=== PATIENT | female | born 1950 | race Caucasian/White ===

== ENCOUNTER → 2023-06-22 12:05 | Outpatient (REF) | payer MEDICARE, OTHER, SELFPAY | LOC: WDC 12:05 | PROVIDERS: ATTENDING PHYSICIAN Student in an Organized Health Care Education/Training Program | DX: Z12.31 Encounter for screening mammogram for malignant neoplasm of breast (principal) | CPT/HCPCS: 77063; 77067 ==

== ENCOUNTER → 2023-10-31 06:26 | Outpatient (REF) | payer MEDICARE, OTHER, SELFPAY ==
[2023-10-31 07:41] LABS: ALT (SGPT) 14 U/L (0-35); AST (SGOT) 29 U/L (14-36); Albumin 4.3 g/dl (3.5-5.0); Alkaline Phosphatase 75 U/L (38-126); Blood Urea Nitrogen 15 mg/dl (7-17); Calcium 10.2 mg/dl (8.4-10.2); Carbon Dioxide 31 mmol/L (22-30); Chloride 102 mmol/L (98-107); Glucose 91 mg/dl (70-99); HDL Cholesterol 51 mg/dl; LDL Cholesterol, Calculated 88 mg/dl; Potassium 5.3 mmol/L (3.5-5.1); Sodium 142 mmol/L (135-145); Total Bilirubin 0.7 mg/dl (0.2-1.3); Total Cholesterol 165 mg/dl (50-199); Triglyceride 131 mg/dl (10-149); Very Low Density Lipoprotein 26 mg/dl (0-30); eGFR > 60.00
== END ==
LOC: REG 06:26
PROVIDERS: ATTENDING PHYSICIAN Internal Medicine Rheumatology; FAMILY PHYSICIAN Student in an Organized Health Care Education/Training Program
DX: Z00.00 Encounter for general adult medical examination without abnormal findings (principal); E78.5 Hyperlipidemia, unspecified; M81.0 Age-related osteoporosis without current pathological fracture
CPT/HCPCS: 36415; 80053; 80061

== ENCOUNTER → 2023-11-30 12:38 | Outpatient (REF) | payer MEDICARE, OTHER, SELFPAY | LOC: RCS 12:38 | PROVIDERS: ATTENDING PHYSICIAN Student in an Organized Health Care Education/Training Program | DX: R01.1 Cardiac murmur, unspecified (principal) | CPT/HCPCS: 93306 ==

== ENCOUNTER 2023-12-04 19:41 | Emergency (ER) | payer MEDICARE, OTHER, SELFPAY ==
[2023-12-04 19:45] VITALS: BP 118/72
--- NOTE | 2023-12-04 20:39 | ED.GENMED ---
History of Present Illness
<Celeste Disla MD, Resident - Last Filed: 12/04/23 22:03>
General
Chief Complaint: Fever
Time Seen by Provider: 12/04/23 20:24
History of Present Illness
History of Present Illness:
72-year-old female presented to the ED with fever of 101 restarted this morning. The patient's highest temperature went up to 203.6. She reports of having chills, headaches. She denies chest pain, shortness of breath, dysuria, hematuria,
hematochezia, rash. She denies any recent cough cough or sick contacts. Patient reports that she has had a chronic cough because of her postnasal drip.
Past History
<Celeste iDsla MD, Resident - Last Filed: 12/04/23 22:03>
Past History
ED Past Medical History: Hypercholesterolemia
ED Past Surgical History: Orthopedic and Tonsilectomy
Social History
Tobacco: Non-smoker
Alcohol: Occasional
Drug: None
Personal:
Living: with family
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
Review of Systems
<Celeste Disla MD, Resident - Last Filed: 12/04/23 22:03>
Review of Systems
Constitutional: Reports fever, fatigue and chills
Phy Exam
<Celeste Disla MD, Resident - Last Filed: 12/04/23 22:03>
Physical Exam
Physical Exam:
Comfortable, conversant
General Physical Exam
General Presentation: no apparent distress
ENT Exam
ENT Exam: EOMI
Cardiovascular Exam
Cardiovascular Exam: regular rate/rhythm
Pulmonary Exam
Pulmonary Exam: lungs clear, no rales, no crackles, no rhonchi and no wheezing
Gastrointestinal Exam
Gastrointestinal Exam: normal bowel sounds, non tender, soft and non distended
Neurological Exam
Neurological Exam: alert and oriented x3
Psychiatric Exam
Psychiatric Exam: normal mood/affect
Course
<Celeste Disla MD, Resident - Last Filed: 12/04/23 22:03>
Orders/Labs/Results
Orders:
Orders
12/04/23 20:38
CR Chest - 2 Views Urgent
Comment:
Reason For Exam: fever 101 with cough
12/04/23 20:59
COVID-19 Antigen Urgent
Source: Nasal Swab
Complete Blood Count/With Diff Urgent
Comprehensive Metabolic Panel Urgent
Influenza A+B Rapid Molecular Urgent
SUN Source: Nasal Swab
Specimen Description:
Strep pneumoniae Antigen Urgent
SUN Source: Urine
Specimen Description:
12/04/23 21:30
0.9% Sodium Chloride 500 ml [Nss] 500 ml IV BOLUS
12/04/23 21:37
Influenza A+B Rapid Molecular Routine
SUN Source: [facility]
Specimen Description:
Abnormal Lab Results
12/04/23
20:59
WBC 13.2 H 10^3/uL
(4.8-10.8)
RBC 3.92 L 10^6/uL
(4.20-5.40)
Hgb 11.8 L g/dL
(12.0-16.0)
Hct 33.4 L %
(37.0-47.0)
Abs Immat Gran (auto) 0.1 H 10^3/uL
(0-0.05)
Absolute Neuts (auto) 11.4 H 10^3/uL
(1.4-6.5)
Absolute Lymphs (auto) 1.0 L 10^3/uL
(1.2-3.4)
Absolute Monos (auto) 0.7 H 10^3/uL
(0.1-0.6)
Neutrophils % 86.6 H %
(42.2-75.2)
Lymphocytes % 7.6 L %
(20.5-51.1)
Sodium 131 L mmol/L
(135-145)
Glucose 125 H mg/dl
(70-99)
12/04/23 20:59
12/04/23 20:59
Vital Signs
Initial and Last Documented VS:
Initial Vital Signs
Pulse Resp BP Pulse Ox
100 22 118/72 95
12/04/23 19:45 12/04/23 19:45 12/04/23 19:45 12/04/23 19:45
Last Documented Vital Signs
Pulse Resp BP Pulse Ox
100 22 118/72 95
12/04/23 19:45 12/04/23 19:45 12/04/23 19:45 12/04/23 19:45
<Audi Hanna, DO - Last Filed: 12/04/23 21:56>
Orders/Labs/Results
Orders:
Orders
12/04/23 20:38
CR Chest - 2 Views Urgent
Comment:
Reason For Exam: fever 101 with cough
12/04/23 20:59
COVID-19 Antigen Urgent
Source: Nasal Swab
Complete Blood Count/With Diff Urgent
Comprehensive Metabolic Panel Urgent
Influenza A+B Rapid Molecular Urgent
SUN Source: Nasal Swab
Specimen Description:
Strep pneumoniae Antigen Urgent
SUN Source: Urine
Specimen Description:
12/04/23 21:30
0.9% Sodium Chloride 500 ml [Nss] 500 ml IV BOLUS
12/04/23 21:37
Influenza A+B Rapid Molecular Routine
SUN Source: [facility]
Specimen Description:
Abnormal Lab Results
12/04/23
20:59
WBC 13.2 H 10^3/uL
(4.8-10.8)
RBC 3.92 L 10^6/uL
(4.20-5.40)
Hgb 11.8 L g/dL
(12.0-16.0)
Hct 33.4 L %
(37.0-47.0)
Abs Immat Gran (auto) 0.1 H 10^3/uL
(0-0.05)
Absolute Neuts (auto) 11.4 H 10^3/uL
(1.4-6.5)
Absolute Lymphs (auto) 1.0 L 10^3/uL
(1.2-3.4)
Absolute Monos (auto) 0.7 H 10^3/uL
(0.1-0.6)
Neutrophils % 86.6 H %
(42.2-75.2)
Lymphocytes % 7.6 L %
(20.5-51.1)
Sodium 131 L mmol/L
(135-145)
Glucose 125 H mg/dl
(70-99)
12/04/23 20:59
12/04/23 20:59
Vital Signs
Initial and Last Documented VS:
Initial Vital Signs
Pulse Resp BP Pulse Ox
100 22 118/72 95
12/04/23 19:45 12/04/23 19:45 12/04/23 19:45 12/04/23 19:45
Last Documented Vital Signs
Pulse Resp BP Pulse Ox
100 22 118/72 95
12/04/23 19:45 12/04/23 19:45 12/04/23 19:45 12/04/23 19:45
Sammilt;Celeste Disla MD, Resident - Last Filed: 12/04/23 22:03>
*Critical Care Note
Total Time (30-74mins, 75-104mins- exclusive of procedures): Not Applicable
<Celeste Disla MD, Resident - Last Filed: 12/04/23 22:03>
Update Note
Update Note:
73-year-old female presented to the ED with fever. She denies any cough, chest pain, shortness of breath or bowel or bladder abnormalities. Will order CBC, CMP, COVID, strep pneumo, influenza test. Will also order chest x-ray to rule out lung
consolidation. Chest x-ray is also suspicious for a possible pneumonia. Plan is to discharge the patient with antibiotics which includes Levaquin 500 mg once a day for 7 days and Motrin 600 mg as needed for fever. Advised to follow-up with family
doctor.
Chest x-ray
FINDINGS: The lungs appear hyperinflated, suggesting COPD.
There is subtle predominantly band-shaped region of increased parenchymal opacity within the lingula of the left upper lobe. This most likely represents pneumonia, although atelectasis could have a similar appearance.
No evidence for associated pleural effusion.
Cardiac silhouette size is within normal limits with no evidence for pulmonary edema.
Minimal levoconvex scoliosis of the thoracic spine.
IMPRESSION:
Hyperinflated lungs compatible with COPD.
Focus of parenchymal opacity within the lingula of the left upper lobe. This most likely represents pneumonia, although atelectasis could have a similar appearance.
ED Attending Note
<Celeste Disla MD, Resident - Last Filed: 12/04/23 22:03>
-
Portions of this chart may have been created with voice recognition software.� Occasional wrong word or��sound alike� substitutions may have occurred due to the inherent limitations of voice recognition software.
<Audi Hanna DO - Last Filed: 12/04/23 21:56>
ED Attending Note
Patient seen and examined by attending physician: Yes
I performed a history and physical exam of patient and discussed management with resident, I reviewed resident's note and agree with documented findings and plan of care.: Yes
ED Attending Note:
Seen with resident agree with assessment plan examined independently fever chills, not much respiratory complaints chest x-ray and white count noted will start on Levaquin, could be viral versus bacterial walking pneumonia feeling better after
fluids and Tylenol at home
Discharge Plan
Departure
Patient Disposition: Home (Routine Discharge)
Date of Disposition: 12/04/23
Time of Disposition: 21:56
Patient with high blood pressure during this ER visit?: No
Discharge Problem:
Left lower lobe consolidation
Prescriptions:
New
levofloxacin 500 mg tablet
500 mg PO DAILY 7 Days Qty: 7 0RF
Rx Instructions:
One table to be taken once a day with food
No Action
multivitamin Tablet
1 tab PO DAILY
atorvastatin 10 mg tablet
10 mg PO QPM
omeprazole 20 mg capsule,delayed release(DR/EC)
20 mg PO DAILY
Prolia 60 mg/mL Syringe
60 mg SC [id number]
Patient Comments:
last dose in April
naproxen 500 mg tablet
500 mg PO BID PRN (Reason: pain) Qty: 10 0RF
Rx Instructions:
take with food
oxycodone-acetaminophen [Percocet] 5-325 mg tablet
1 tab PO Q8H PRN (Reason: pain) Qty: 7 0RF
lidocaine 5 % adhesive patch,medicated
1 patch topical DAILY Qty: 15 0RF
Interventions
Interventions:
*Risk Screen - Suicide Last Done: 12/04/23 19:45
*General Assessment Last Done: 12/04/23 21:10
*Neglect/Abuse Screening Last Done: 12/04/23 19:45
ED- Fall Risk Assessment Last Done: 12/04/23 21:11
*ED COVID-19 Vaccine History Last Done: 12/04/23 21:10
ED- Neurological Assessment Last Done: 12/04/23 21:11
ED-Skin Assessment Last Done: 12/04/23 21:11
Discharge Date and Time
Print Language: AMHARIC
[2023-12-04 21:09] VITALS: BMI 17.8
[2023-12-04 21:11] LABS: % Basophils 0.4 % (0-2); % Immature Granulocytes 0.5 % (0-0.5); % Lymphocytes 7.6 % (20.5-51.1); % Monocytes 4.9 % (1.7-9.3); % Neutrophils 86.6 % (42.2-75.2); Absolute Basophils 0.1 10^3/uL (0-0.2); Absolute Immature Granulocytes 0.1 10^3/uL (0-0.05); Absolute Monocytes 0.7 10^3/uL (0.1-0.6); Absolute Neutrophils 11.4 10^3/uL (1.4-6.5); Hematocrit 33.4 % (37.0-47.0); Hemoglobin 11.8 g/dL (12.0-16.0); Mean Corp Hgb Conc. 35.3 g/dL (33.0-37.0); Mean Corpuscular Hgb 30.1 pg (27.0-31.0); Mean Corpuscular Volume 85.2 fL (81.0-99.0); Mean Platelet Volume 10.4 fL (7.4-10.4); Nucleated Red Blood Cells % 0 %; Platelet Count 206 10^3/uL (130-400); Red Blood Cell Count 3.92 10^6/uL (4.20-5.40); Red Cell Dist. Width 13.2 % (11.5-14.5); White Blood Cell Count 13.2 10^3/uL (4.8-10.8)
[2023-12-04 21:24] LABS: COVID-19 Antigen Negative (Negative)
[2023-12-04 21:26] LABS: ALT (SGPT) 14 U/L (0-35); AST (SGOT) 26 U/L (14-36); Alkaline Phosphatase 80 U/L (38-126); Blood Urea Nitrogen 14 mg/dl (7-17); Calcium 8.9 mg/dl (8.4-10.2); Carbon Dioxide 26 mmol/L (22-30); Chloride 99 mmol/L (98-107); Estimated Creatinine Clearance 53 ml/min; Glucose 125 mg/dl (70-99); Potassium 4.1 mmol/L (3.5-5.1); Sodium 131 mmol/L (135-145); Total Bilirubin 0.8 mg/dl (0.2-1.3); Total Protein 7.1 g/dl (6.3-8.2); eGFR > 60.00
[2023-12-04] MEDS: NSS 500 IV (21:38)
[2023-12-04 21:43] VITALS: BP 105/62
[2023-12-04 22:00] VITALS: BP 112/56
[2023-12-04] MEDS: MOTRIN 600 MG PO (22:33)
[2023-12-04] MEDS: LEVAQUIN 500 MG PO (22:33)
[2023-12-04 22:35] VITALS: BP 112/57
[2023-12-04 22:42] VITALS: BP 112/57
== END 2023-12-04 22:49 | disposition home or self-care (01) ==
LOC: EMR 19:41
PROVIDERS: Student in an Organized Health Care Education/Training Program; EMERGENCY PHYSICIAN Emergency Medicine; FAMILY PHYSICIAN Student in an Organized Health Care Education/Training Program
DX: J18.1 Lobar pneumonia, unspecified organism (principal); E78.00 Pure hypercholesterolemia, unspecified
CPT/HCPCS: 99283; 96360; 71046; 80053; 85025; 87502; 87811; 87899

== ENCOUNTER → 2023-12-21 06:39 | Outpatient (REF) | payer MEDICARE, OTHER, SELFPAY ==
[2023-12-21 07:33] LABS: Urine Albumin Negative (Neg - Trace); Urine Bilirubin Negative (Negative); Urine Character Clear (Clear); Urine Color Straw; Urine Glucose Negative (Negative); Urine Ketone Negative (Negative); Urine Leukocyte Negative (Negative); Urine Nitrite Negative (Negative); Urine Occult Blood Negative (Negative); Urine Specific Gravity 1.005 (<1.030); Urine Urobilinogen Negative (Neg - 1+)
[2023-12-21 07:36] LABS: % Basophils 1.1 % (0-2); % Eosinophils 1.5 % (0-6); % Immature Granulocytes 0.3 % (0-0.5); % Lymphocytes 30.4 % (20.5-51.1); % Monocytes 6.2 % (1.7-9.3); % Neutrophils 60.5 % (42.2-75.2); Absolute Basophils 0.1 10^3/uL (0-0.2); Absolute Eosinophils 0.1 10^3/uL (0-0.7); Absolute Lymphocytes 2.4 10^3/uL (1.2-3.4); Absolute Monocytes 0.5 10^3/uL (0.1-0.6); Absolute Neutrophils 4.7 10^3/uL (1.4-6.5); Hematocrit 38.7 % (37.0-47.0); Hemoglobin 12.6 g/dL (12.0-16.0); Mean Corp Hgb Conc. 32.6 g/dL (33.0-37.0); Mean Corpuscular Hgb 29.2 pg (27.0-31.0); Mean Corpuscular Volume 89.8 fL (81.0-99.0); Mean Platelet Volume 10.5 fL (7.4-10.4); Nucleated Red Blood Cells % 0 %; Platelet Count 336 10^3/uL (130-400); Red Blood Cell Count 4.31 10^6/uL (4.20-5.40); Red Cell Dist. Width 13.1 % (11.5-14.5); White Blood Cell Count 7.9 10^3/uL (4.8-10.8)
[2023-12-21 08:05] LABS: ALT (SGPT) 19 U/L (0-35); AST (SGOT) 30 U/L (14-36); Albumin 4.3 g/dl (3.5-5.0); Alkaline Phosphatase 94 U/L (38-126); Blood Urea Nitrogen 15 mg/dl (7-17); Calcium 9.7 mg/dl (8.4-10.2); Carbon Dioxide 31 mmol/L (22-30); Chloride 103 mmol/L (98-107); Glucose 99 mg/dl (70-99); Sodium 141 mmol/L (135-145); Total Bilirubin 0.7 mg/dl (0.2-1.3); Total Protein 7.8 g/dl (6.3-8.2); eGFR > 60.00
[2023-12-21 08:28] LABS: Procalcitonin < 0.05 ng/ml (0.0-0.25)
[2023-12-21 08:44] LABS: Erythrocyte Sed Rate 60 mm/hour (0-20)
[2023-12-22 14:36] LABS: Lyme Antibody Screen, EIA Negative (Negative)
[2023-12-23 20:21] LABS: Ehrlichia chaffeensis IgG Ab <1:64 (<1:64); Ehrlichia chaffeensis IgM Ab < 1:16 (< 1:16)
== END ==
LOC: REG 06:39
PROVIDERS: ATTENDING PHYSICIAN Student in an Organized Health Care Education/Training Program
DX: Z87.01 Personal history of pneumonia (recurrent) (principal); R05.3 Chronic cough; R50.9 Fever, unspecified; R53.83 Other fatigue
CPT/HCPCS: 36415; 71046; 80053; 81003; 84145; 85025; 85652; 86140; 86618; 86666

== ENCOUNTER → 2024-04-18 07:36 | Outpatient (REF) | payer MEDICARE, OTHER, SELFPAY ==
[2024-04-18 08:42] LABS: ALT (SGPT) 35 U/L (0-35); AST (SGOT) 46 U/L (14-36); Albumin 4.9 g/dl (3.5-5.0); Alkaline Phosphatase 57 U/L (38-126); Blood Urea Nitrogen 17 mg/dl (7-17); Calcium 10.6 mg/dl (8.4-10.2); Carbon Dioxide 29 mmol/L (22-30); Chloride 102 mmol/L (98-107); Glucose 84 mg/dl (70-99); Potassium 5.3 mmol/L (3.5-5.1); Sodium 144 mmol/L (135-145); Total Bilirubin 0.5 mg/dl (0.2-1.3); Total Protein 8.6 g/dl (6.3-8.2); eGFR > 60.00
== END ==
LOC: REG 07:36
PROVIDERS: ATTENDING PHYSICIAN Internal Medicine Rheumatology
DX: M81.0 Age-related osteoporosis without current pathological fracture (principal); Z51.81 Encounter for therapeutic drug level monitoring
CPT/HCPCS: 36415; 80053

== ENCOUNTER 2024-05-14 06:28 | Day surgery (SDC) | payer MEDICARE, OTHER, SELFPAY | END 2024-05-14 08:44 | disposition home or self-care (01) | LOC: GI 06:28 | PROVIDERS: ATTENDING PHYSICIAN Internal Medicine | DX: Z12.11 Encounter for screening for malignant neoplasm of colon (principal); K57.30 Diverticulosis of large intestine without perforation or abscess without bleeding; K64.4 Residual hemorrhoidal skin tags | CPT/HCPCS: G0121 ==

== ENCOUNTER → 2024-06-27 12:13 | Outpatient (REF) | payer MEDICARE, OTHER, SELFPAY | LOC: WDC 12:13 | PROVIDERS: ATTENDING PHYSICIAN Student in an Organized Health Care Education/Training Program | DX: Z12.31 Encounter for screening mammogram for malignant neoplasm of breast (principal) | CPT/HCPCS: 77063; 77067 ==

== ENCOUNTER → 2024-10-30 11:20 | Outpatient (REF) | payer MEDICARE, OTHER, SELFPAY ==
[2024-10-30 11:53] LABS: % Eosinophils 0.9 % (0-6); % Immature Granulocytes 0.2 % (0-0.5); % Lymphocytes 27.9 % (20.5-51.1); % Monocytes 5.1 % (1.7-9.3); % Neutrophils 64.9 % (42.2-75.2); Absolute Basophils 0.1 10^3/uL (0-0.2); Absolute Eosinophils 0.1 10^3/uL (0-0.7); Absolute Lymphocytes 2.3 10^3/uL (1.2-3.4); Absolute Monocytes 0.4 10^3/uL (0.1-0.6); Absolute Neutrophils 5.3 10^3/uL (1.4-6.5); Hemoglobin 13.3 g/dL (12.0-16.0); Mean Corp Hgb Conc. 33.3 g/dL (33.0-37.0); Mean Corpuscular Volume 90.1 fL (81.0-99.0); Mean Platelet Volume 10.5 fL (7.4-10.4); Nucleated Red Blood Cells % 0 %; Platelet Count 235 10^3/uL (130-400); Red Blood Cell Count 4.44 10^6/uL (4.20-5.40); Red Cell Dist. Width 13.2 % (11.5-14.5); White Blood Cell Count 8.2 10^3/uL (4.8-10.8)
[2024-10-30 13:32] LABS: ALT (SGPT) 24 U/L (0-35); AST (SGOT) 31 U/L (14-36); Albumin 4.8 g/dl (3.5-5.0); Alkaline Phosphatase 68 U/L (38-126); Blood Urea Nitrogen 15 mg/dl (7-17); Calcium 10.1 mg/dl (8.4-10.2); Carbon Dioxide 29 mmol/L (22-30); Chloride 107 mmol/L (98-107); Glucose 97 mg/dl (70-99); HDL Cholesterol 60 mg/dl; LDL Cholesterol, Calculated 97 mg/dl; Potassium 4.9 mmol/L (3.5-5.1); Sodium 145 mmol/L (135-145); Total Bilirubin 0.8 mg/dl (0.2-1.3); Total Cholesterol 190 mg/dl (50-199); Total Protein 8.4 g/dl (6.3-8.2); Triglyceride 166 mg/dl (10-149); Very Low Density Lipoprotein 33 mg/dl (0-30); eGFR > 60.00
[2024-10-30 14:52] LABS: Vitamin D, 25-OH*** 32.6 ng/mL (30-80)
[2024-10-30 15:06] LABS: TSH Reflex To Free T4 1.35 uIU/ml (0.47-4.68)
== END ==
LOC: REG 11:20
PROVIDERS: ATTENDING PHYSICIAN Student in an Organized Health Care Education/Training Program; REFERRING PHYSICIAN Internal Medicine Rheumatology
DX: Z00.00 Encounter for general adult medical examination without abnormal findings (principal); E78.5 Hyperlipidemia, unspecified; M81.0 Age-related osteoporosis without current pathological fracture; R01.1 Cardiac murmur, unspecified
CPT/HCPCS: 36415; 80053; 80061; 82306; 84443; 85025

== ENCOUNTER → 2024-12-19 07:47 | Outpatient (REF) | payer MEDICARE, OTHER, SELFPAY | LOC: RAD 07:47 | PROVIDERS: ATTENDING PHYSICIAN Internal Medicine Rheumatology; FAMILY PHYSICIAN Student in an Organized Health Care Education/Training Program | DX: M81.0 Age-related osteoporosis without current pathological fracture (principal) | CPT/HCPCS: 77080; 93306 ==

== ENCOUNTER 2025-02-21 06:35 | Day surgery (SDC) | payer MEDICARE, OTHER, SELFPAY | END 2025-02-21 10:40 | disposition home or self-care (01) | LOC: GI 06:35 | PROVIDERS: ATTENDING PHYSICIAN Internal Medicine; FAMILY PHYSICIAN Student in an Organized Health Care Education/Training Program | DX: K29.70 Gastritis, unspecified, without bleeding (principal); D13.0 Benign neoplasm of esophagus; K22.89 Other specified disease of esophagus; K22.2 Esophageal obstruction; K44.9 Diaphragmatic hernia without obstruction or gangrene; R13.10 Dysphagia, unspecified | CPT/HCPCS: 43249; 43239; 88305; 88342 ==

== ENCOUNTER → 2025-03-20 07:11 | Outpatient (REF) | payer MEDICARE, OTHER, SELFPAY ==
[2025-03-20 08:48] LABS: HDL Cholesterol 49 mg/dl; LDL Cholesterol, Calculated 109 mg/dl; Very Low Density Lipoprotein 31 mg/dl (0-30)
== END ==
LOC: REG 07:11
PROVIDERS: ATTENDING PHYSICIAN Student in an Organized Health Care Education/Training Program; FAMILY PHYSICIAN Student in an Organized Health Care Education/Training Program
DX: R01.1 Cardiac murmur, unspecified (principal); E78.00 Pure hypercholesterolemia, unspecified
CPT/HCPCS: 36415; 80061

== ENCOUNTER → 2025-04-16 07:03 | Outpatient (REF) | payer MEDICARE, OTHER, SELFPAY ==
[2025-04-16 08:30] LABS: ALT (SGPT) 22 U/L (0-35); AST (SGOT) 31 U/L (14-36); Albumin 4.5 g/dl (3.5-5.0); Alkaline Phosphatase 62 U/L (38-126); Blood Urea Nitrogen 21 mg/dl (7-17); Calcium 9.4 mg/dl (8.4-10.2); Carbon Dioxide 31 mmol/L (22-30); Chloride 103 mmol/L (98-107); Glucose 89 mg/dl (70-99); Potassium 4.5 mmol/L (3.5-5.1); Sodium 141 mmol/L (135-145); Total Protein 7.8 g/dl (6.3-8.2); Vitamin D, 25-OH*** 26.8 ng/mL (30-80); eGFR > 60.00
== END ==
LOC: REG 07:03
PROVIDERS: ATTENDING PHYSICIAN Internal Medicine Rheumatology; FAMILY PHYSICIAN Student in an Organized Health Care Education/Training Program
DX: E55.9 Vitamin D deficiency, unspecified (principal); M81.0 Age-related osteoporosis without current pathological fracture
CPT/HCPCS: 36415; 80053; 82306